=== PATIENT | male | born 1990 | race Caucasian/White ===

== ENCOUNTER 2018-10-18 09:53 | Emergency (ER) | payer BC ==
--- NOTE | 2018-10-18 11:10 | UC ---
HPI Febrile Illness - HPI Summary HPI Summary: 28 yo male [employer] presents with 2 week hx of fever/chills/myalgias and fatigue headache/anorexia /intermittent diarrhea has had aching burning chest paint the entire two weeks bad cough the last day or two no SOB - History of Current Complaint Chief Complaint: UCGeneralIllness Time Seen by Provider: 10/18/18 10:59 Hx Obtained From: Patient Onset/Duration: Started Weeks Ago Timing: Constant Initial Severity: Moderate Current Severity: Moderate Pain Intensity: 7 Pain Scale Used: 0-10 Numeric Aggravating Factors: Nothing Alleviating Factors: Nothing Associated Signs and Symptoms: Chills, Diarrhea, Headache, Myalgia, Other: - anorexia - Allergy/Home Medications Allergies/Adverse Reactions: Allergies Allergy/AdvReac Type Severity Reaction Status Date / Time No Known Allergies Allergy Verified 10/18/18 10:23 Home Medications: Home Medications NK [No Home Medications Reported] 10/18/18 [History Confirmed 10/18/18] PMH/Surg Hx/FS Hx/Imm Hx Previously Healthy: Yes - Surgical History Surgical History: None - Family History Known Family History: Positive: Hypertension, Non-Contributory - Social History Alcohol Use: Occasionally Substance Use Type: None Smoking Status (MU): Never Smoked Tobacco Review of Systems All Other Systems Reviewed And Are Negative: Yes Constitutional: Positive: Fever, Chills, Fatigue Skin: Positive: Negative Eyes: Positive: Negative ENT: Positive: Negative Respiratory: Positive: Cough Cardiovascular: Positive: Negative Gastrointestinal: Positive: Negative, Diarrhea Genitourinary: Positive: Negative Motor: Positive: Negative Musculoskeletal: Positive: Arthralgia, Myalgia Neurological: Positive: Headache Psychological: Positive: Negative Physical Exam Vital Signs: Initial Vital Signs Temp 97.2 F 10/18/18 10:08 Pulse 78 10/18/18 10:08 Resp 20 10/18/18 10:08 BP 88/63 10/18/18 10:08 Pulse Ox 100 10/18/18 10:08 Course/Dx - Diagnoses Provider Diagnosis: Bronchitis Discharge - Sign-Out/Discharge Documenting (check all that apply): Patient Departure All imaging exams completed and their final reports reviewed: Yes - Discharge Plan Condition: Stable Disposition: HOME Patient Education Materials: Acute Bronchitis (ED) Additional Instructions: the antibiotic will treat you for lyme disease blood work is pending see your MD in [place] if not better early next week - Billing Disposition and Condition Condition: STABLE Disposition: Home
[2018-10-18 12:40] VITALS: BP 132/68
[2018-10-18 16:07] LABS: ABS Basophils 0.1 10^3/ul (0-0.2); ABS Eosinophils 0.2 10^3/ul (0-0.6); ABS Lymphocytes 2.8 10^3/ul (1.0-4.8); ABS Monocytes 0.6 10^3/ul (0-0.8); ABS Neutrophils 7.7 10^3/ul (1.5-7.7); Eosinophil % 1.6 %; Hematocrit 46 % (42-52); Hemoglobin 15.8 g/dL (14.0-18.0); Lymphocyte % 24.3 %; Mean Corpuscular HGB Conc 35 g/dL (31-36); Mean Corpuscular Hemoglobin 29 pg (27-31); Mean Corpuscular Volume 84 fL (80-94); Mean Platelet Volume 8.4 fL (7.4-10.4); Platelet Count 339 10^3/uL (150-450); Red Cell Distribution Width 13 % (10-15); White Blood Count 11.4 10^3/uL (3.5-10.8)
[2018-10-18 16:32] LABS: Albumin 4.9 g/dL (3.2-5.2); Calcium 10.2 mg/dL (8.6-10.3); Potassium 4.5 mmol/L (3.5-5.0); Total Bilirubin 0.7 mg/dL (0.2-1.0)
[2018-10-18 16:38] LABS: Albumin/Globulin Ratio 1.6 (1-3); BUN/Creatinine Ratio 14.2 (8-20); EGFR African American 87.9 (>60); EGFR Non-African American 72.6 (>60); Globulin 3.1 g/dL (2-4)
[2018-10-20 21:42] LABS: Legionella pneumophila Ab Negative (Negative)
[2018-10-21 16:26] LABS: Mycoplasma pneumoniae IgG Ab Positive (Negative); Mycoplasma pneumoniae IgM Ab Negative (Negative)
--- NOTE | 2018-10-22 07:20 | UC ---
- Progress Note Progress Note: Lab results reviewed: Legionella Ab neg M.Pneumoniae IgG pos and IgM neg ( Results suggest past exposure) Patient was started on amoxicillin for bronchitis. No change in plan. Course/Dx - Diagnoses Provider Diagnoses: Bronchitis Discharge - Sign-Out/Discharge Documenting (check all that apply): Post-Discharge Follow Up All imaging exams completed and their final reports reviewed: Yes - Discharge Plan Condition: Stable Disposition: HOME Prescriptions: Amoxicillin PO (*) [Amoxicillin 500 MG CAP*] 500 mg PO TID #42 cap Patient Education Materials: Acute Bronchitis (ED) Forms: *Work Release Referrals: Luis Elizondo MD [Primary Care Provider] - Additional Instructions: the antibiotic will treat you for lyme disease blood work is pending see your MD in [place] if not better early next week - Billing Disposition and Condition Condition: STABLE Disposition: Home
== END 2018-10-18 12:38 | disposition home or self-care (01) ==
LOC: UCEAST 09:53
DX: J40 Bronchitis, not specified as acute or chronic (principal)
CPT/HCPCS: 36415; 71046; 80053; 85025; 86308; 86618; 86713; 86738; 93005; 99202; G0463